=== PATIENT | female | born 1985 | race Caucasian/White ===

== ENCOUNTER 2018-03-24 20:02 | Inpatient (IN) ==
[2018-03-24] MEDS ORDERED: Sod Chloride 0.9% Inj 1,000 ML IV.CONT PRN (20:36)
[2018-03-24] MEDS ORDERED: fentaNYL Citrate Inj 100 MCG/2 ML Ampul IV.PUSH PRN ×2 (20:36)
[2018-03-24] MEDS ORDERED: Sodium Chlor 0.9% Inj 500 ML IV.SIG PRN (20:36)
[2018-03-24] MEDS ORDERED: Oxytocin 30 Units/500ml Premix 30 UNITS/500 ML BAG IV.SIG ONE (20:36)
[2018-03-24] MEDS ORDERED: Citric Acid/Sodium Citrate Liq 30 ML UDC PO SCH (20:45)
[2018-03-24] MEDS ORDERED: Sod Chloride 0.9% Inj 1,000 ML IRRIGATION SCH (21:15)
[2018-03-24] MEDS: Acetaminophen 325 MG Tablet PO PRN (22:11)
[2018-03-24 22:27] LABS: Baso % (Auto) 0.3 % (0.0-2.0); Eos % (Auto) 0.5 % (0.0-4.0); Hematocrit 33.2 % (35.0-46.0); Hemoglobin 11.2 gm/dL (11.6-15.3); Lymph # (Auto) 2.3 th/mm3 (1.0-4.8); Lymph % (Auto) 22.3 % (9.0-44.0); Mean Corpuscular HGB Conc 33.8 % (32.0-36.0); Mean Corpuscular Volume 97.7 fL (80.0-100.0); Mean Platelet Volume 8.9 fL (7.0-11.0); Mono # (Auto) 0.7 th/mm3 (0.0-0.9); Mono % (Auto) 7.1 % (0.0-8.0); Neut # (Auto) 7.2 th/mm3 (1.8-7.7); Neut % (Auto) 69.8 % (16.0-70.0); Platelet Count 215 th/mm3 (150-450); Red Cell Distribution Width 13.1 % (11.6-17.2); White Blood Count 10.3 th/mm3 (4.0-11.0)
[2018-03-24 22:33] LABS: Clarity,Urine Hazy (Clear); Color,Urine Amber (Yellw/Straw); Glucose,Urine (UA) Negative (Negative); Leukocyte Esterase,Urine Negative (Negative); Mucus,Urine Few /lpf (Occasional); Nitrite,Urine Negative (Negative); Squamous Epithelial Cell,Urine 14 /hpf (0-5)
[2018-03-24 22:35] LABS: Bilirubin,Urine Negative (Negative); Ictotest,Urine Negative (Negative)
[2018-03-24 22:36] LABS: Amphetamine Urine With Conf Neg (Neg); Benzodiazepine Urine With Conf Neg (Neg)
--- NOTE | 2018-03-25 04:54 | P.OBGPN ---
S: Doing well, some cramping, no loss of fluid. O: VS: Exam: Cervix 1.5/50/-3/posterior. Cervidil was at the introitus. FHTs: 120s, moderate variability, accelerations present, no decelerations TOCO: Rare contractions 32 yo at 39w2d by L/20 (BOO 03/30/18) 1. IUP: Cat 1 tracing - GBS neg, - EFW (03/12) = 2713g 29%, AC 4%, - Female, Alberto 2. IOL: for #3: Status post Cervidil, was poorly placed, Sheikh score still and favorable, will give misoprostol PV every 4 hours as needed. 3. IUGR: based on AC, normal testing and umbilical artery Dopplers throughout her . 4. tobacco use: rec cessation 5. Asthma: controlled on no meds 6. ASCUS hrHPV + pap: colpo this preg, LSIL appearing at 12 o clock, repeat colpo PP.
[2018-03-25] MEDS ORDERED: Oxytocin 30 Units/500ml Premix 30 UNITS/500 ML BAG IV.SIG PRN (07:51)
[2018-03-25] MEDS: Acetaminophen 325 MG Tablet PO PRN ×2 (09:53→16:48)
[2018-03-25] MEDS: Prenatal Vit/Ca/Iron/Folic Acid Tablet PO SCH (10:01)
--- NOTE | 2018-03-25 11:40 | MH ---
cc: Kevin Villarreal MD DATE OF ADMISSION: 03/24/2018 CHIEF COMPLAINT: Induction of labor. HISTORY OF PRESENT ILLNESS: This patient is a 32-year-old G4, P3-0-0-3, who will be 39 weeks and 1 day at time of her admission by her LMP, consistent with a 20-week ultrasound with estimated due date of 03/30/2018, IOL for for growth restriction. Her has been complicated by tobacco use, asthma PAST MEDICAL HISTORY: 1. Tobacco use. 2. Asthma. MEDICATIONS: vitamins. ALLERGIES: LATEX, but NO KNOWN DRUG ALLERGIES. SOCIAL HISTORY: Tobacco use. Denies alcohol or drug use. [employer] HISTORY: LMP of 06/23/2017. No history of STDs. OBSTETRIC HISTORY: March 2010, 38-week . May 2006, 38 weeks . 2007 term . To note, she has 2 of her kids, 1 was given up for adoption. FAMILY HISTORY: No pertinent positive family history. PHYSICAL EXAMINATION: Based on account from 03/19/2018: VITAL SIGNS: Weight 136 pounds, blood pressure 100/70. GENERAL: Alert and oriented x 3, resting comfortably in bed. PULMONARY: Lungs are clear to auscultation bilaterally. No wheezes, crackles, or rhonchi. CARDIOVASCULAR: Regular rate and rhythm. No murmurs, rubs, or gallops. ABDOMEN: Soft, gravid, nontender. : Deferred. EXTREMITIES: No clubbing, cyanosis, or edema. LABORATORY DATA: Please see records. ASSESSMENT AND PLAN: This patient is a 32-year-old G4, P-3-0-0-3, who is at 39 weeks and 1 day for induction of labor secondary to growth restriction. 1. Intrauterine . We will place on monitoring at time of presentation. Estimated weight on 03/12/2018, 2017 grams, 29th percentile, abdominal circumference 4th percentile, female of fetus name Alberto. 2. Induction of labor secondary to number 3. Will place Cervidil. Cervix was 1, thick and high on 03/19/2018. 3. growth restriction likely due to tobacco use. See above for EFW. Has had normal testing since the time of diagnosis. 4. Asthma, controlled without medications. Avoid Hemabate if necessary. 5. ASCUS Pap with high-risk human papillomavirus positive. Had a colposcopy with this . No biopsies obtained. Plan for colposcopy . MD BRADY Ying/elizabeth , 10:35 AM , 10:44 AM [place]
[2018-03-25] MEDS ORDERED: fentaNYL 2MCG-Bupiv 0.125% Epi 150 ML EPIDURAL ONE (11:47)
[2018-03-25] MEDS ORDERED: Lidocaine PF 1% Inj 5 ML Vial ONE (12:11)
[2018-03-25] MEDS ORDERED: Lidocaaine 1.5%/Epinephrine 1:200,000 PF Inj 5 ML Amp ONE (12:11)
[2018-03-25 15:33] VITALS: RESP 18
[2018-03-25] MEDS ORDERED: fentaNYL 2MCG-Bupiv 0.125% Epi 150 ML EPIDURAL PRN (15:37)
[2018-03-25] MEDS ORDERED: fentaNYL Citrate Inj 100 MCG/2 ML Ampul EPIDURAL ONE (15:37)
[2018-03-25] MEDS ORDERED: Diphtheria/Tetanus/Pertussis Vaccine Inj 0.5 ML Syringe IM ONE (16:00)
[2018-03-25] MEDS ORDERED: Measles/Mumps/Rubella Vaccine Inj 0.5 ML Vial SQ ONE (16:00)
--- NOTE | 2018-03-25 16:14 | P.OP ---
Surgeon: Kevin Villarreal MD Operation and Findings: Preoperative diagnosis: 1. Intrauterine at 39 weeks and 2 days 2. growth restriction 3. Tobacco use 4. Asthma Postop diagnosis 1. Same as above status post delivery Procedure 1. Term spontaneous vaginal delivery Surgeon Dr. Matt Witt the OB hospitalist delivered the . I, Dr. Kevin Villarreal , arrived within 5 minutes of delivery to resume care of the patient and for delivery of placenta. Community Services Officer: [facility] labor [facility] delivery staff Findings: 1. Viable female at 3:58 PM, Apgars 9 and 9, weight . Nuchal cord x1 2. Intact placenta 3 vessel cord at 4:05 PM 3. Intact perineum vagina and cervix Anesthesia: Epidural placenta to disposal Specimen: Estimated blood loss: Less than 300 cc Fluid replacement: Lactated Ringer's and Pitocin Urine output: None recorded none required DVT prophylaxis: Antibiotics: None required Counts: correct x2 Time out done: yes Disposition: Stable to Indications: Patient is a 32-year-old who presented for induction of labor secondary to intrauterine growth restriction, Cervidil was placed the night before her delivery, the morning of she was artificially ruptured, Pitocin was used for augmentation she progressed to complete with reassuring heart tones, I was called and the patient was complete and began my transit to the hospital during this time the patient had a precipitous delivery under the care of the OB hospitalist Dr. Witt. Description of procedure: Per Dr. Witt: The patient began pushing as her arrived to the room, there was no time to break down the bed, the head upon was allowed to restitute naturally for delivery with a supported perineum, with gentle downward guidance the anterior shoulder was delivered followed by gentle upper guidance for the posterior shoulder, the torso and lower extremities were delivered with ease and with continued perineal support. The infant had spontaneous cry and was placed on mom's abdomen for skin to skin contact, we allowed delayed cord clamping. After the cord was clamped and cut, cord blood was obtained. At this time 5 minutes after delivery I arrived, The Pitocin was bolused and with fundal massage the placenta was delivered, there is minimal uterine bleeding and uterus was firm. The perineum, vagina and cervix were inspected and found intact. The patient tolerated the procedure well and was left in the birthing suite with her .
[2018-03-25] MEDS ORDERED: Oxytocin 30 Units/500ml Premix 30 UNITS/500 ML BAG IV.CONT PRN (16:15)
[2018-03-25] MEDS ORDERED: Acetaminophen 325 MG Tablet PO PRN (16:15)
[2018-03-25] MEDS ORDERED: Witch Hazel 50%/Glyderin 12.5% 40 Pad Jar RECTAL PRN (16:15)
[2018-03-25] MEDS ORDERED: Bisacodyl 10 MG Supp RECTAL PRN (16:15)
[2018-03-25] MEDS ORDERED: Naloxone Inj 0.4 MG/ML Vial IV.PUSH PRN (16:15)
[2018-03-25] MEDS ORDERED: Zolpidem Tartrate 5 MG Tablet PO PRN (16:15)
[2018-03-25] MEDS ORDERED: Benzocaine 20% Top Spray 60 ML Can TOPICAL PRN (16:15)
[2018-03-25] MEDS: Senna/Docusate Sodium 8.6/50 MG Tablet PO SCH (20:30)
[2018-03-26] MEDS: Prenatal Vit/Ca/Iron/Folic Acid Tablet PO SCH (08:04)
[2018-03-26] MEDS: Senna/Docusate Sodium 8.6/50 MG Tablet PO SCH (08:05)
[2018-03-26 08:15] VITALS: BP 101/70; PULSE 66; TEMP 98.1
--- NOTE | 2018-03-26 09:04 | P.PNOB ---
Subjective Post day: 1 Interval history: Doing well after quick second stage and delivery by Dr. Witt tolerating cramps with motrin nursing no concerns Objective Vital Signs/I&O: Vital Signs 03/25/18 09:54 03/25/18 10:35 03/25/18 11:28 Temperature 98.2 F 97.9 F Pulse Rate 96 H 93 H 90 Respiratory Rate 16 16 Blood Pressure 110/74 104/68 106/67 03/25/18 12:20 03/25/18 12:25 03/25/18 12:29 Temperature Pulse Rate 99 H 91 H Respiratory Rate 16 Blood Pressure 115/76 108/70 03/25/18 12:42 03/25/18 12:45 03/25/18 12:53 Temperature Pulse Rate 89 89 Respiratory Rate Blood Pressure 106/68 103/65 94/57 L 03/25/18 13:00 03/25/18 13:01 03/25/18 13:25 Temperature Pulse Rate 87 89 Respiratory Rate 16 Blood Pressure 94/56 L 102/57 L 03/25/18 13:30 03/25/18 13:40 03/25/18 14:00 Temperature 98.7 F Pulse Rate 79 82 Respiratory Rate 16 Blood Pressure 95/57 L 93/62 L 03/25/18 14:24 03/25/18 14:30 03/25/18 15:00 Temperature Pulse Rate 91 H 75 75 Respiratory Rate 16 16 Blood Pressure 95/64 L 101/64 102/70 03/25/18 15:15 03/25/18 15:30 03/25/18 15:36 Temperature 98.6 F Pulse Rate 75 76 Respiratory Rate 18 Blood Pressure 101/69 99/67 L 03/25/18 15:53 03/25/18 16:16 03/25/18 16:17 Temperature Pulse Rate 81 79 Respiratory Rate 18 18 Blood Pressure 98/58 L 102/62 03/25/18 16:36 03/25/18 16:52 03/25/18 17:18 Temperature Pulse Rate 78 73 79 Respiratory Rate 18 18 18 Blood Pressure 107/75 108/69 107/74 03/25/18 17:49 03/25/18 18:00 03/25/18 18:30 Temperature Pulse Rate 78 90 82 Respiratory Rate 18 Blood Pressure 109/67 109/78 107/65 03/25/18 18:45 03/25/18 18:46 03/25/18 19:40 Temperature Pulse Rate 85 89 Respiratory Rate 18 18 Blood Pressure 110/68 105/66 03/25/18 20:00 03/26/18 08:00 Temperature 98.3 F 98.1 F Pulse Rate 73 66 Respiratory Rate 18 18 Blood Pressure 109/66 101/70 Intake & Output 03/25/18 03/26/18 03/26/18 18:59 06:59 18:59 Intake Total 1000 / 1000 Balance 1000 / 1000 Intake: IV 1000 / 1000 LR 1000 mL Inj 1,000 ML @ 125 1000 / 1000 mls/hr IV.CONT .Q8H [facility] Rx#: [id number] Result Diagrams: 03/24/18 20:50 Objective Remarks: GENERAL: Well-nourished, well-developed patient. CARDIOVASCULAR: Regular rate and rhythm without murmurs, gallops, or rubs. RESPIRATORY: Breath sounds equal bilaterally. No accessory muscle use. ABDOMEN/GI: Abdomen soft, non-tender. Fundus: Firm, non-tender at umbilicus. GENITOURINARY: Light to moderate bleeding. EXTREMITIES: No cyanosis or edema, non-tender, without signs of DVT. Medications and IVs: Active Medications Acetaminophen (Tylenol) 650 mg PO Q6H PRN PRN Reason: TOOTHACHE Last Admin: 03/25/18 16:48 Dose: 650 mg Acetaminophen (Tylenol) 650 mg PO Q4H PRN PRN Reason: PAIN SCALE 1 TO 2 Al Hydroxide/Mg Hydroxide (Milk Of Magnesia Liq) 30 ml PO Q12H PRN PRN Reason: Mild Constipation Benzocaine (Americaine 20% [place]) 1 spray TOPICAL Q4H PRN PRN Reason: For Perineum Discomfort Last Admin: 03/25/18 20:29 Dose: 1 spray Bisacodyl (Dulcolax Supp) 10 mg RECTAL DAILY PRN PRN Reason: SEVERE CONSITIPATION Ephedrine Sulfate (Ephedrine/Ns Syringe) 10 mg IV.PUSH UNSCH PRN PRN Reason: SEE LABEL COMMENTS Stop: 03/26/18 15:37 Last Admin: 03/25/18 16:57 Dose: 10 mg Fentanyl/Bupivacaine/Sodium Chlor (Fentanyl 2 Mcg-Bupiv 0.125% Epi) 150 mls @ 12 mls/hr EPIDURAL PRN PRN PRN Reason: for Labor Pain Oxytocin (Pitocin 30 Units/Ns 500 Ml Premix) 30 units in 500 mls @ 100 mls/hr IV.CONT UNSCH PRN PRN Reason: Heavy bleeding Ibuprofen (Motrin) 800 mg PO Q8H PRN PRN Reason: For Cramping Last Admin: 03/26/18 06:24 Dose: 800 mg Lactulose (Lactulose Liq) 30 ml PO DAILY PRN PRN Reason: SEVERE CONSITIPATION Miscellaneous Information (Misc Information) 1 each OTHER UNSCH PRN PRN Reason: SEE LABEL COMMENTS Stop: 03/26/18 15:37 Miscellaneous Information (Misc Information) 1 each OTHER UNSCH PRN PRN Reason: SEE LABEL COMMENTS Stop: 03/26/18 15:37 Naloxone HCl (Narcan Inj) 0.1 mg IV.PUSH Q2M PRN PRN Reason: for opiate reversal Nicotine (Habitrol 21 Mg Patch.24 Hr) 1 patch T-DERMAL DAILY PRN PRN Reason: PRN WITHDRAWAL Ondansetron HCl (Zofran Inj) 4 mg IV.PUSH Q6H PRN PRN Reason: NAUSEA OR VOMITING Ondansetron HCl (Zofran Odt) 4 mg PO Q6H PRN PRN Reason: NAUSEA OR VOMITING Oxycodone/Acetaminophen (Percocet 5/325 Mg) 2 tab PO Q4H PRN PRN Reason: PAIN SCALE 6 TO 10 Oxycodone/Acetaminophen (Percocet 5/325 Mg) 1 tab PO Q4H PRN PRN Reason: PAIN SCALE 3 TO 5 Vit/Calcium/Iron/Folic Ac (Stuartnatal Plus 3) 1 tab PO DAILY [facility] Last Admin: 03/26/18 08:04 Dose: Not Given Senna/Docusate Sodium (Alexandra-Colace) 1 tab PO BID [facility] Last Admin: 03/26/18 08:05 Dose: 1 tab Sennosides (Senokot) 17.2 mg PO Q12H PRN PRN Reason: Moderate Constipation Sodium Chloride (Ns Flush) 2 ml IV.FLUSH BID [facility] Last Admin: 03/26/18 08:05 Dose: Not Given Sodium Chloride (Ns Flush) 2 ml IV.FLUSH PRN PRN PRN Reason: FLUSH AFTER USING IV ACCESS Witch Cee/Glycerin (Tucks Pads) 1 applicatio RECTAL QID PRN PRN Reason: HEMORRHOIDS Last Admin: 03/25/18 20:30 Dose: 1 applicatio Zolpidem Tartrate (Ambien) 5 mg PO HS PRN PRN Reason: SLEEP Assessment and Plan - Plan PPD 1 unremarkable probable discharge on PPD reviewed discharge instructions
== END 2018-03-26 18:22 | disposition home or self-care (01) ==
LOC: H2E 20:02 → H1EA 03-25 19:44
PROVIDERS: ADMIT Obstetrics & Gynecology; ATTEND Obstetrics & Gynecology